=== PATIENT | male | born 1980 | race Caucasian/White ===

== ENCOUNTER 2023-10-29 11:19 | Day surgery (SDC) | payer BC, SELFPAY ==
[2023-10-29] VITALS (10 sets, daily range): BP systolic 127–150; BP diastolic 83–103; PULSE 77–96; RESP 14–20; TEMP 36.6–37.2; O2SAT 95–100; BMI 28.7
[2023-10-29] MEDS: LACTATED RINGERS 1000 ML 1,000 ML 125 ML IV (12:00)
[2023-10-29] MEDS: PIPERACILLIN/TAZOBACTAM 3.375 GM in 0.9 % SODIUM CHLORIDE Mini-bag 100 ML IVPB (12:42)
[2023-10-29] MEDS: BUPIVACAINE LIPOSOME 133 MG/10 ML INJ INFILTRATI (13:05)
[2023-10-29] MEDS: BUPIVACAINE 0.25% 30 ML INJECTION (13:05)
--- NOTE | 2023-10-29 13:20 | W.PM.H&PU ---
History & Physical Update History & Physical Update H&P Reviewed and patient assessed: No changes noted
--- NOTE | 2023-10-29 13:20 | PM.GSPRC ---
Operative Note Date of procedure: 10/29/23 Pre-op diagnosis: 1. Right perianal abscess. Post-op diagnosis: Same Type of Procedure: 1. Exam under anesthesia. 2. Incision and drainage of right perianal abscess. Indications: 42-year-old male was seen in clinic with several days of perianal pain and redness. The pain started last Saturday and was getting progressively worse. On Saturday patient had chills and did not feel well. He was then seen in clinic by a primary care provider. A pelvic CT was obtained that showed 6 x 3 cm perianal abscess on the right. On clinical exam patient had erythema just lateral to the anus on the right. Induration and fluctuance was palpated. An attempt at incision and drainage was made in clinic however, patient was too uncomfortable during the procedure, and procedure was aborted. After further discussion, I recommended to proceed with incision and drainage in the operating room under anesthesia. The procedure was discussed in detail. The risks associated procedure including infection, bleeding, persistent pain, and possible need for future procedures were all discussed with the patient, and he agreed to proceed. Procedure Description: After discussing the risks and benefits of the procedure, the patient signed informed consent.? The operative site was marked and the patient was brought to the operating room. spinal anesthesia was administered. Patient was then placed prone on the procedure table with all pressure points padded. The operative site was then prepped and draped in the usual sterile fashion.? A time-out was then performed. Perianal skin was examined and revealed right perianal erythema extending superiorly and inferiorly for at least 13 cm. Minimally enlarged external hemorrhoidal tissue was noted left posterior laterally. Anoscopy was done and did not reveal any purulence in the anal canal. I then placed a 19 gauge needle into the area of fluctuance and was able to aspirate purulent drainage. The surgical incision was then made in this location. Large amount of purulence came out from the incision. Small amount of purulent drainage was sent to microbiology for culture. This incision was extended inferiorly until I was able to place my finger into the abscess cavity. The abscess appeared to extend superiorly for at least 3 cm and inferiorly into the perineum for another 3 cm. Hemostasis was achieved with cautery. The abscess cavity was irrigated with normal saline. A mixture of Marcaine and Exparel was injected around the abscess cavity. The abscess cavity was then packed with iodoform Nu Gauze and covered by sterile 4 x 4 and ABD pad. The patient was then woken and transported to the recovery area in stable condition. ? The patient tolerated the procedure well. Anesthesia: MAC, local and spinal Surgeon: Carlos Crain MD Estimated blood loss (mL): 5 Additional Specimen Information: 1. Purulence sent to microbiology for culture. Condition: stable Disposition: PACU
--- NOTE | 2023-10-29 13:23 | W.ANESCHARGE ---
Anesthesia Charges Start Date/Time Anesthesia Start Date: 10/29/23 Anesthesia Start Time: 12:38 Stop Date/Time Anesthesia Stop Date: 10/29/23 Anesthesia Stop Time: 13:18
--- NOTE | 2023-10-29 14:00 | W.ANESCHARGE ---
Anesthesia Charges Start Date/Time Anesthesia Start Date: 10/29/23 Anesthesia Start Time: 12:38 Stop Date/Time Anesthesia Stop Date: 10/29/23 Anesthesia Stop Time: 13:18
[2023-10-29] MEDS: OXYCODONE 5 MG TABLET PO (15:00)
== END 2023-10-29 15:11 | disposition home or self-care (01) ==
PROVIDERS: PCP Family Medicine; Visit Provider Surgery
PROC: (CPT 46040; principal; 2023-10-29 13:15)
DX: K61.0 Anal abscess (principal)
CPT/HCPCS: 46050; 00902; 87070; 87075; 87076; 87181; 87186; 87205; A9270; C9290; J0665; J2250; J2543; J3010; J7120